=== PATIENT | male | born 1980 | race American Indian/Alaskan Native ===

== ENCOUNTER 2018-05-24 23:00 | Emergency (ER) | payer SELFPAY ==
[2018-05-24 23:04] VITALS: BP 115/71; PULSE 86; RESP 18; TEMP 98.5; O2SAT 95
[2018-05-24] MEDS ORDERED: Sodium Chloride 0.9% 1,000 ML IV STA (23:13)
--- NOTE | 2018-05-24 23:17 | ED PDOC ---
HPI: General Adult Time Seen by Provider: 05/24/18 23:07 Chief Complaint (Nursing): Dizziness/Lightheaded Chief Complaint (Provider): dizzy, off psych meds History Per: Patient Additional Complaint(s): 38 y/o male presents to ED stating he feels dizzy and lightheaded for 3 days. Patient states he has not been taking his Seroquel because he ran out 3 days ago. He denies any suicidal or homicidal ideation. Patient denies any chest pain , shortness of breath or dyspnea on exertion. Past Medical History Reviewed: Historical Data, Nursing Documentation, Vital Signs Vital Signs: Last Vital Signs Temp 98.5 F 05/24/18 23:01 Pulse 86 05/24/18 23:01 Resp 18 05/24/18 23:01 BP 115/71 05/24/18 23:01 Pulse Ox 95 05/24/18 23:17 - Medical History PMH: Bipolar Disorder - Surgical History Surgical History: Hernia Repair - Family History Family History: States: No Known Family Hx - Living Arrangements Living Arrangements: Other (non-domiciled) - Social History Current smoker - smoking cessation education provided: No Alcohol: None Drugs: Denies - Allergies Allergies/Adverse Reactions: Allergies Allergy/AdvReac Type Severity Reaction Status Date / Time No Known Allergies Allergy Verified 05/24/18 23:01 Review of Systems ROS Statement: Except As Marked, All Systems Reviewed And Found Negative Constitutional: Negative for: Fever, Chills Cardiovascular: Positive for: Light Headedness. Negative for: Chest Pain Respiratory: Negative for: Cough, Shortness of Breath Gastrointestinal: Negative for: Nausea, Vomiting Neurological: Positive for: Dizziness. Negative for: Headache Psych: Negative for: Suicidal ideation Physical Exam - Reviewed Nursing Documentation Reviewed: Yes Vital Signs Reviewed: Yes - Physical Exam Appears: Positive for: Well, Non-toxic, No Acute Distress Skin: Positive for: Normal Color. Negative for: Rash Eye Exam: Positive for: Normal appearance Cardiovascular/Chest: Positive for: Regular Rate, Rhythm Respiratory: Positive for: Normal Breath Sounds. Negative for: Wheezing, Respiratory Distress Gastrointestinal/Abdominal: Positive for: Soft. Negative for: Tenderness, Distended, Guarding, Rebound Back: Positive for: Normal Inspection Extremity: Positive for: Normal ROM Neurologic/Psych: Positive for: Alert, Oriented - Laboratory Results Result Diagrams: 05/24/18 23:28 05/24/18 23:28 - ECG O2 Sat by Pulse Oximetry: 95 Pulse Ox Interpretation: Normal - Other Rad CXR X-Ray: Interpreted by Me, Viewed By Me X-Ray Interpretation: poor inspiratory effort, no acute finding Medical Decision Making Medical Decision Makin38 year old male with dizziness, also out of psych meds Plan: CBC CMP UDS BAL UA EKG Crisis eval Patient states dizziness is resolved after fluid bolus. UDS is positive for PCP and marijuana. As per crisis counselor and psychiatrist permastone installer, Dr. Salazar, patient does not meet criteria for admission and is stable for discharge. Disposition - Clinical Impression Clinical Impression: Bipolar disorder - Patient ED Disposition Is Patient to be Admitted: No Counseled Patient/Family Regarding: Need For Followup - Disposition Referrals: [facility] [Outside] Disposition: Routine/Home Disposition Time: 01:11 Condition: STABLE Additional Instructions: Follow up as directed. Instructions: Bipolar Disorder (DC) Forms: [employer] (Angolan) Results - Lab Results Lab Results: 05/25/18 05/25/18 05/24/18 00:10 00:10 23:28 WBC RBC Hgb Hct MCV MCH MCHC RDW Plt Count MPV Neut % (Auto) Lymph % (Auto) [place] % (Auto) Eos % (Auto) Baso % (Auto) Neut # (Auto) Lymph # (Auto) [place] # (Auto) Eos # (Auto) Baso # (Auto) Sodium 142 Potassium 3.9 Chloride 104 Carbon Dioxide 28 Anion Gap 14 BUN 21 H Creatinine 1.0 Est GFR ( Amer) > 60 Est GFR (Non-Af Amer) > 60 Random Glucose 103 Calcium 9.6 Total Bilirubin 0.6 AST 34 ALT 63 Alkaline Phosphatase 66 Total Protein 7.6 Albumin 4.5 Globulin 3.1 Albumin/Globulin Ratio 1.5 Urine Color Siri Urine Clarity Slighty-cloudy Urine pH 5.0 Ur Specific [place] 1.034 H Urine Protein 30 Urine Glucose (UA) Neg Urine Ketones Negative Urine Blood Negative Urine Nitrate Negative Urine Bilirubin Negative Urine Urobilinogen 4.0 Ur Leukocyte Esterase Neg Urine RBC (Auto) 3 Urine Microscopic WBC 1 Ur Squamous Epith Cells < 1 Urine Bacteria Rare Urine Opiates Screen Negative Urine Methadone Screen Negative Ur Barbiturates Screen Negative Ur Phencyclidine Scrn Positive H Ur Amphetamines Screen Negative U Benzodiazepines Scrn Negative U Oth Cocaine Metabols Negative U Cannabinoids Screen Positive H Alcohol, Quantitative < 10 05/24/18 23:28 WBC 6.5 RBC 4.89 Hgb 13.2 Hct 39.6 MCV 80.9 MCH 27.0 MCHC 33.3 RDW 15.3 H Plt Count 248 MPV 8.0 Neut % (Auto) 56.0 Lymph % (Auto) 33.1 [place] % (Auto) 7.2 Eos % (Auto) 2.6 Baso % (Auto) 1.1 Neut # (Auto) 3.6 Lymph # (Auto) 2.1 [place] # (Auto) 0.5 Eos # (Auto) 0.2 Baso # (Auto) 0.1 Sodium Potassium Chloride Carbon Dioxide Anion Gap BUN Creatinine Est GFR ( Amer) Est GFR (Non-Af Amer) Random Glucose Calcium Total Bilirubin AST ALT Alkaline Phosphatase Total Protein Albumin Globulin Albumin/Globulin Ratio Urine Color Urine Clarity Urine pH Ur Specific [place] Urine Protein Urine Glucose (UA) Urine Ketones Urine Blood Urine Nitrate Urine Bilirubin Urine Urobilinogen Ur Leukocyte Esterase Urine RBC (Auto) Urine Microscopic WBC Ur Squamous Epith Cells Urine Bacteria Urine Opiates Screen Urine Methadone Screen Ur Barbiturates Screen Ur Phencyclidine Scrn Ur Amphetamines Screen U Benzodiazepines Scrn U Oth Cocaine Metabols U Cannabinoids Screen Alcohol, Quantitative
[2018-05-24 23:33] LABS: BASO # 0.1 K/uL (0.0-0.2); BASO % 1.1 % (0.0-2.0); EOS # 0.2 K/uL (0.0-0.7); EOS % 2.6 % (0.0-4.0); HEMOGLOBIN 13.2 g/dL (12.0-18.0); LYMPH # 2.1 K/uL (1.0-4.3); LYMPH % 33.1 % (20.0-40.0); MEAN CELL VOLUME 80.9 fl (80.0-94.0); MEAN CORPUSCULAR HGB CONC 33.3 g/dL (33.0-37.0); MONO # 0.5 K/uL (0.0-0.8); MONO % 7.2 % (0.0-10.0); NEUT # 3.6 K/uL (1.8-7.0); NRBC % 0.3 % (0.0-0.0); RBC 4.89 Mil/uL (4.40-5.90); RED CELL DISTRIBUTION WIDTH 15.3 % (11.5-14.5); WHITE BLOOD COUNT 6.5 K/uL (4.8-10.8)
[2018-05-24 23:41] LABS: ALB/GLOB RATIO 1.5 (1.0-2.1); ALBUMIN 4.5 g/dL (3.5-5.0); ALT/SGPT 63 U/L (21-72); AST/SGOT 34 U/L (17-59); BLOOD UREA NITROGEN 21 mg/dl (9-20); CALCIUM 9.6 mg/dL (8.4-10.2); GFR AFRICAN-AMERICAN > 60; GFR NON-AFRICAN AMERICAN > 60
[2018-05-25 00:25] LABS: SQUAMOUS EPITHIAL < 1 /hpf (0-5); URINE BACTERIA RARE (<OCC); URINE BILIRUBIN NEGATIVE (NEGATIVE); URINE BLOOD NEGATIVE (NEGATIVE); URINE CLARITY SLIGHTY-CLOUDY (Clear); URINE COLOR AMBER (YELLOW); URINE GLUCOSE (UA) NEG (Normal); URINE LEUKOCYTE ESTERASE NEG Leu/uL (Negative); URINE PROTEIN 30 mg/dL (NEGATIVE)
[2018-05-25 00:42] LABS: BARBITURATES, UR NEGATIVE (NEGATIVE); BENZODIAZEPINES, UR NEGATIVE (NEGATIVE); OPIATES, UR NEGATIVE (NEGATIVE); PHENCYCLIDINE, UR POSITIVE (NEGATIVE)
--- NOTE | 2018-05-25 07:15 | RAD ---
Date of service: 05/24/2018 HISTORY: clearance COMPARISON: No prior. FINDINGS: LUNGS: No active pulmonary disease. PLEURA: No significant pleural effusion identified, no pneumothorax apparent. CARDIOVASCULAR: Normal. OSSEOUS STRUCTURES: No significant abnormalities. VISUALIZED UPPER ABDOMEN: Normal. OTHER FINDINGS: None. IMPRESSION: No active disease.
--- NOTE | 2018-05-25 07:49 | CARD ---
APPROVED REPORT Date of service: 05/24/2018 <Conclusion> Normal sinus rhythm Left axis deviation Abnormal ECG
== END 2018-05-25 01:20 | disposition home or self-care (01) ==
LOC: H.ER 23:00
DX: F31.9 Bipolar disorder, unspecified (principal); R42 Dizziness and giddiness
CPT/HCPCS: 71045; 80053; 81003; 85025; 93005; 96360; 99283; G0480; J7030